=== PATIENT | female | born 1940 | race Caucasian/White ===

== ENCOUNTER 2021-03-14 14:48 | Emergency (ER) | payer MEDICARE, SELFPAY ==
--- NOTE | ~2021-03-14 | XR_ITS ---
EXAMINATION: XR CHEST CLINICAL INFORMATION: Hypertension. COMPARISON: Chest radiographs dated 07/13/2007. TECHNIQUE: Frontal view of the chest was obtained. FINDINGS: The lungs are clear. The heart and mediastinal structures are unremarkable. Mild thoracolumbar levoscoliosis is seen. XR/XR chest 1V IMPRESSION: No acute cardiopulmonary process.
[2021-03-14 16:03] VITALS: BP 164/62; PULSE 75; RESP 18; TEMP 36.7; O2SAT 94; BMI 22.6
--- NOTE | 2021-03-14 16:09 | ECG_ITS ---
Test Reason : HIGH BLOOD PRESSURE Blood Pressure : / mmHG Vent. Rate : 069 BPM Atrial Rate : 069 BPM P-R Int : 178 ms QRS Dur : 116 ms QT Int : 422 ms P-R-T Axes : 037 044 031 degrees QTc Int : 452 ms Normal sinus rhythm Normal ECG When compared with ECG of 23-JUL-2010 11:11, No significant change was found Referred By: Generic ED Physician Electronically Signed By:Jarocho Self
[2021-03-14 17:20] LABS: MANUAL DIFF FLAG NO
[2021-03-14 17:26] LABS: Basophils Absolute Auto 0.1 X10*3/uL (0.0-0.2); Basophils Percent Auto 0.7 % (0-2); Eosinophils Absolute Auto 0.1 X10*3/uL (0.0-0.4); Eosinophils Percent Auto 1.4 % (0-4); Hematocrit 39.1 % (37-47); Hemoglobin 12.9 g/dl (12.0-16.0); Imm Gran Abs Auto 0.02 X10*3/uL (0.00-0.03); Imm Gran Pct Auto 0.3 % (0.0-0.4); Lymphocytes Absolute Auto 2.6 X10*3/uL (1.2-4.9); Lymphocytes Percent Auto 35.8 % (20-40); Mean Corpuscular Volume 84.8 fL (80-98); Mean Platelet Volume 9.7 fL (9.4-12.3); Monocytes Absolute Auto 0.5 X10*3/uL (0.1-1.2); Monocytes Percent Auto 7.4 % (2-11); Neutrophils Percent Auto 54.4 % (45-73); Platelet Count 359 X10*3/uL (160-400); Red Blood Count 4.61 X10*6/uL (4.20-5.50); Red Cell Distribution Width 14.2 % (11.0-16.0); White Blood Count 7.3 X10*3/uL (4.8-10.8)
[2021-03-14 17:34] LABS: Glucose Urine UA NEG (NEG); Leukocyte Esterase Urine 1+ (NEG); Nitrite Urine NEG (NEG); Specific Gravity - Urine 1.015 (1.005-1.025); UACC Culture Trigger YES; Urine Blood NEG (NEG); Urine Ketones NEG (NEG); Urine Protein 1+ MG/DL (NEG-TRACE)
[2021-03-14 17:37] LABS: Appearance Urine CLEAR; Color Urine YELLOW
[2021-03-14 17:54] LABS: Anion Gap 17 (12-20); Blood Urea Nitrogen 24 mg/dL (9-16); Calcium 9.8 mg/dL (8.4-10.2); Carbon Dioxide 28 mmol/L (22-29); Chloride 101 mmol/L (96-108); Creatinine Clr Calc Pharmacy 27.5; Estimated Glomerular Filt Rate 43; Glucose Random 134 mg/dL (60-115); Potassium 3.7 mmol/L (3.3-5.1); Sodium 142 mmol/L (135-145)
[2021-03-14 18:02] LABS: Troponin-I High Sensitivity 6.7 ng/L (<3.5-17.0)
[2021-03-14 18:11] LABS: Bacteria Urine 1+ /LPF; RBC Urine 0-2 /HPF (0); Squamous Epithelial Cell Urine 1+ /LPF
--- NOTE | 2021-03-14 20:25 | ED.GENADULT ---
HPI - General Adult General Chief complaint: Recheck/Abnormal Lab/Rx Stated complaint: HIGH BLOOD PRESSURE Time Seen by Provider: 03/14/21 19:39 Source: patient and family Mode of arrival: ambulatory Limitations: no limitations History of Present Illness HPI narrative: Patient history of hypertension on metoprolol noticed blood pressure been on the higher side for last 2 weeks highest blood pressure was 195/106 seen her PCP already who advised to increase the dose of metoprolol but patient has not increased the dose yet also patient was a little confused last week no headache no nausea no vomiting no fever on arrival patient's blood pressure was 164/62 Related Data Previous Rx's Medication Instructions Recorded cefuroxime axetil 500 mg PO BID 7 Days #14 tab 03/14/21 Allergies Allergy/AdvReac Type Severity Reaction Status Date / Time latex [LATEX] Allergy Severe SEVERE Verified 03/14/21 16:02 LOCAL REACTION; OOZING Review of Systems Review of Systems: Constitutional : No Weight loss, No Fever, No Chills ENT/Mouth : No sore throat, No Rhinorrhea Eyes: No Eye Pain, No Swelling Cardiovascular : No Chest Pain, no palpitations Respiratory : No Cough, No Sputum, no shortness of breath Gastrointestinal : no Nausea, No Vomiting, No Diarrhea, No abdominal Pain, no black stools Genitourinary : No Dysuria, No Urinary Frequency Musculoskeletal : No joint pain, No Myalgias, No Joint Swelling Skin : No Skin Lesions, No rash Neuro : No Weakness, No Numbness, No Dizziness, No Headache Psych : No Anxiety/Panic, No Depression Heme/Lymph: No Bruising, No Lymphadenopathy Endocrine : No Polyuria, No Polydipsia All other systems reviewed and are negative [facility] Past Medical History Medical History Diabetes High cholesterol HTN (hypertension) Social History Social History Advance Directives: No Physical Exam Vital Signs: Vital Signs: Last Vital Signs Temp 97.6 F 03/14/21 20:55 Pulse 80 03/14/21 20:55 Resp 17 03/14/21 20:55 BP 174/78 H 03/14/21 20:55 Pulse Ox 95 03/14/21 20:55 Body Mass Index 22.6 Appearance: Alert. Oriented X3. No acute distress. Eyes: PERRLA, No Nystagmus ENT: Pharynx normal. Oral Mucosa moist Neck: Normal inspection. Neck supple. CVS: Normal heart rate and rhythm. Pulses normal. Respiratory: No respiratory distress. Equal air entry bilateral, no wheezing/rales/rhonchi Abdomen: Soft and nontender. Bowel sounds are present, no mass palpable, no CVA tenderness Skin: Skin warm and dry. Normal skin color. Normal skin turgor. Extremities: No lower extremity edema. No calf tenderness Neuro: Oriented X 3. No motor deficit. No sensory deficit.No cerebellar signs , cranial nerves II-XII intact Medical Decision Making MDM Narrative Medical decision making narrative: Patient blood pressure 148/73 urine shows few wbc's . Will discharge patient home on Ceftin Lab Data Lab results reviewed: Yes I reviewed the patient's lab results. Result diagrams: 03/14/21 17:04 03/14/21 17:04 Labs: Lab Results 03/14/21 03/14/21 03/14/21 Range/Units 17:04 17:04 17:04 WBC 7.3 (4.8-10.8) X10*3/uL RBC 4.61 (4.20-5.50) X10*6/uL Hgb 12.9 (12.0-16.0) g/dl Hct 39.1 (37-47) % MCV 84.8 (80-98) fL MCH 28.0 (27.0-33.0) pg MCHC 33.0 (31.0-35.0) g/dl RDW 14.2 (11.0-16.0) % Plt Count 359 (160-400) X10*3/uL MPV 9.7 (9.4-12.3) fL Immature Gran % (Auto) 0.3 (0.0-0.4) % Neut % (Auto) 54.4 (45-73) % Lymph % (Auto) 35.8 (20-40) % Jenkins % (Auto) 7.4 (2-11) % Eos % (Auto) 1.4 (0-4) % Baso % (Auto) 0.7 (0-2) % Lymph # (Auto) 2.6 (1.2-4.9) X10*3/uL Jenkins # (Auto) 0.5 (0.1-1.2) X10*3/uL Eos # (Auto) 0.1 (0.0-0.4) X10*3/uL Baso # (Auto) 0.1 (0.0-0.2) X10*3/uL Abs Immat Gran (auto) 0.02 (0.00-0.03) X10*3/uL Absolute Neuts (auto) 4.0 (2.0-8.3) X10*3/uL Absolute Nucleated RBC 0.000 (0.0-0.012) X10*3/uL Nucleated RBC % (auto) 0.0 (0.0-0.2) /100WBC Hold Blue Top SEE NOTE Sodium 142 (135-145) mmol/L Potassium 3.7 (3.3-5.1) mmol/L Chloride 101 (96-108) mmol/L Carbon Dioxide 28 (22-29) mmol/L Anion Gap 17 (12-20) BUN 24 H (9-16) mg/dL Creatinine 1.19 (0.5-1.4) mg/dL Estim Creat Clear Calc 27.5 Estimated GFR 43 Random Glucose 134 H (60-115) mg/dL Calcium 9.8 (8.4-10.2) mg/dL Troponin I High Sens (<3.5-17.0) ng/L Urine Color Urine Appearance Urine pH (5.0-8.0) Ur Specific Natoma (1.005-1.025) Urine Protein (NEG-TRACE) MG/DL Urine Glucose (UA) (NEG) MG/DL Urine Ketones (NEG) MG/DL Urine Blood (NEG) Urine Nitrite (NEG) Ur Leukocyte Esterase (NEG) Urine RBC (0) /HPF Urine WBC (0-4) /HPF Ur Squamous Epith Cells /LPF Urine Bacteria /LPF 03/14/21 03/14/21 Range/Units 17:04 17:04 WBC (4.8-10.8) X10*3/uL RBC (4.20-5.50) X10*6/uL Hgb (12.0-16.0) g/dl Hct (37-47) % MCV (80-98) fL MCH (27.0-33.0) pg MCHC (31.0-35.0) g/dl RDW (11.0-16.0) % Plt Count (160-400) X10*3/uL MPV (9.4-12.3) fL Immature Gran % (Auto) (0.0-0.4) % Neut % (Auto) (45-73) % Lymph % (Auto) (20-40) % Jenkins % (Auto) (2-11) % Eos % (Auto) (0-4) % Baso % (Auto) (0-2) % Lymph # (Auto) (1.2-4.9) X10*3/uL Jenkins # (Auto) (0.1-1.2) X10*3/uL Eos # (Auto) (0.0-0.4) X10*3/uL Baso # (Auto) (0.0-0.2) X10*3/uL Abs Immat Gran (auto) (0.00-0.03) X10*3/uL Absolute Neuts (auto) (2.0-8.3) X10*3/uL Absolute Nucleated RBC (0.0-0.012) X10*3/uL Nucleated RBC % (auto) (0.0-0.2) /100WBC Hold Blue Top Sodium (135-145) mmol/L Potassium (3.3-5.1) mmol/L Chloride (96-108) mmol/L Carbon Dioxide (22-29) mmol/L Anion Gap (12-20) BUN (9-16) mg/dL Creatinine (0.5-1.4) mg/dL Estim Creat Clear Calc Estimated GFR Random Glucose (60-115) mg/dL Calcium (8.4-10.2) mg/dL Troponin I High Sens 6.7 (<3.5-17.0) ng/L Urine Color YELLOW Urine Appearance CLEAR Urine pH 6.0 (5.0-8.0) Ur Specific Natoma 1.015 (1.005-1.025) Urine Protein 1+ H (NEG-TRACE) MG/DL Urine Glucose (UA) NEG (NEG) MG/DL Urine Ketones NEG (NEG) MG/DL Urine Blood NEG (NEG) Urine Nitrite NEG (NEG) Ur Leukocyte Esterase 1+ H (NEG) Urine RBC 0-2 (0) /HPF Urine WBC 10-14 H (0-4) /HPF Ur Squamous Epith Cells 1+ /LPF Urine Bacteria 1+ /LPF Discharge Plan Discharge Clinical Impression: Acute UTI Hypertension Qualifiers: Hypertension type: unspecified Qualified Code(s): I10 - Essential (primary) hypertension Patient Disposition: Home, Self-Care Instructions: Hypertension (ED), Urinary Tract Infection in Older Adults (ED) Additional Instructions: Your have labile hypertension , continue medications as prescribed by her PCP your last blood pressure was 148/73 Check blood pressure daily Take antibiotic as prescribed. Drink plenty of fluids Prescriptions: New cefuroxime axetil 500 mg tablet 500 mg PO BID 7 Days Qty: 14 RF: 0 Interventions: ED Discharge Assessment Last Done: 03/14/21 21:50 Discharge Date/Time: 03/14/21 21:50
[2021-03-14 20:55] VITALS: BP 174/78; PULSE 80; RESP 17; TEMP 36.4; O2SAT 95
== END 2021-03-14 21:50 | disposition home or self-care (01) ==
PROVIDERS: Emergency Provider Internal Medicine; PCP Family Medicine
DX: N39.0 Urinary tract infection, site not specified (principal); I10 Essential (primary) hypertension; Z79.899 Other long term (current) drug therapy
CPT/HCPCS: 36415; 71045; 80048; 81001; 81003; 84484; 85025; 87086; 93005; 99284

== ENCOUNTER 2021-03-22 17:13 | Emergency (ER) | payer MEDICARE, SELFPAY ==
[2021-03-22 18:03] VITALS: BMI 22.3
[2021-03-22 18:10] VITALS: BP 208/86; PULSE 79; RESP 16; TEMP 36.4; O2SAT 97
--- NOTE | 2021-03-22 18:26 | ED_ITS ---
HPI - General Adult General Chief complaint: General Medical Stated complaint: HIGH BP Time Seen by Provider: 03/22/21 18:26 Source: patient Mode of arrival: ambulatory Limitations: no limitations History of Present Illness HPI narrative: Patient has history of hypertension on lisinopril and metoprolol seen her primary care doctor for episodic increase blood pressure who increased the dose of metoprolol to 100 mg daily instead of 50 but patient has not taken it yet today her blood pressure was elevated at home 208/86 on arrival no headache no chest pain no shortness of breath patient is slightly anxious on arr ival Related Data Previous Rx's Medication Instructions Recorded cefuroxime axetil 500 mg PO BID 7 Days #14 tab 03/14/21 Allergies Allergy/AdvReac Type Severity Reaction Status Date / Time latex [LATEX] Allergy Severe SEVERE Verified 03/14/21 16:02 LOCAL REACTION; OOZING Review of Systems Review of Systems: Yes all other systems are reviewed and are negative [facility] Past Medical History Medical History Diabetes High cholesterol HTN (hypertension) Social History Social History Alcohol intake: never Patient Tobacco Use Status: Never used Tobacco Use of substances other than those prescribed or required for medical reasons: No Advance Directives: No Advance Directives Information Provided: No Physical Exam Vital Signs: Vital Signs: Last Vital Signs Temp 97.5 F 03/22/21 18:10 Pulse 79 03/22/21 18:10 Resp 16 03/22/21 18:10 BP 208/86 H 03/22/21 18:10 Pulse Ox 97 03/22/21 18:10 Body Mass Index 22.3 Appearance: Alert. Oriented X3. No acute distress. Eyes: PERRLA, No Nystagmus ENT: Pharynx normal. Oral Mucosa moist Neck: Normal inspection. Neck supple. CVS: Normal heart rate and rhythm. Pulses normal. Respiratory: No respiratory distress. Equal air entry bilateral, no wheezing/rales/rhonchi Abdomen: Soft and nontender. Bowel sounds are present, no mass palpable, no CVA tenderness Skin: Skin warm and dry. Normal skin color. Normal skin turgor. Extremities: No lower extremity edema. No calf tenderness Neuro: Oriented X 3. No motor deficit. No sensory deficit.No cerebellar signs , cranial nerves II-XII intact Medical Decision Making MDM Narrative Medical decision making narrative: Patient with slightly elevated blood pressure re-educated about the hypertension and importance of taking the medication follow-up with PCP at this time patient does not have any end-organ damage findings family is at the bedside as sure to follow-up with her PCP and increase the dose of metoprolol to 50 mg twice daily or 100 mg extended release daily Discharge Plan Discharge Clinical Impression: Hypertension Patient Disposition: Home, Self-Care Instructions: Hypertension (ED) Additional Instructions: Drink plenty of fluids Increase dose of metoprolol 50 mg 2 times daily as advised or take ER 100 mg daily Check blood pressure at home which should be less than 160/90 Take extra tablet of metoprolol 25 mg tonight if blood pressure stays higher than 160/90 Follow-up with your PCP Prescriptions: No Action cefuroxime axetil 500 mg tablet 500 mg PO BID 7 Days Qty: 14 RF: 0 Interventions: ED Discharge Assessment Last Done: 03/22/21 19:33 Discharge Date/Time: 03/22/21 19:33
== END 2021-03-22 19:33 | disposition home or self-care (01) ==
PROVIDERS: Emergency Provider Internal Medicine; PCP Family Medicine
DX: I10 Essential (primary) hypertension (principal); Z79.899 Other long term (current) drug therapy
CPT/HCPCS: 99282; 99283; 99284

== ENCOUNTER 2021-09-02 08:07 | Outpatient (REF) | payer MEDICARE, SELFPAY ==
[2021-09-02 10:24] LABS: Anion Gap 12 (12-20); Blood Urea Nitrogen 16 mg/dL (9-16); Carbon Dioxide 30 mmol/L (22-29); Chloride 100 mmol/L (96-108); Cholesterol 248 mg/dL; Estimated Glomerular Filt Rate 52; Glucose Fasting 130 mg/dL (60-99); HDL Cholesterol 49 mg/dL; LDL Cholesterol Calculated 163 mg/dl; Potassium 3.4 mmol/L (3.3-5.1); Sodium 139 mmol/L (135-145); Triglycerides 183 mg/dL
[2021-09-02 10:53] LABS: Creatinine Urine 159.92 mg/dL; Microalbum/Creatinine Ratio Ur 9.3 ug/mg cr
[2021-09-02 11:04] LABS: Estimated Average Glucose 148 mg/dL; Hemoglobin A1c % 6.8 %
== END 2021-09-02 08:08 | disposition home or self-care (01) ==
LOC: HO.10HDL 08:07
PROVIDERS: Visit Provider Family Medicine
DX: I10 Essential (primary) hypertension (principal); E78.00 Pure hypercholesterolemia, unspecified; E11.9 Type 2 diabetes mellitus without complications
CPT/HCPCS: 36415; 80051; 80061; 82043; 82565; 82947; 83036; 84520

== ENCOUNTER 2022-02-06 07:36 | Outpatient (REF) | payer MEDICARE, SELFPAY ==
[2022-02-06 08:43] LABS: Anion Gap 14 (12-20); Blood Urea Nitrogen 19 mg/dL (9-16); Carbon Dioxide 29 mmol/L (22-29); Chloride 99 mmol/L (96-108); Cholesterol 261 mg/dL; Estimated Glomerular Filt Rate 50; Glucose Fasting 136 mg/dL (60-99); HDL Cholesterol 50 mg/dL; LDL Cholesterol Calculated 170 mg/dl; Potassium 3.7 mmol/L (3.3-5.1); Sodium 138 mmol/L (135-145); Triglycerides 207 mg/dL
[2022-02-06 09:13] LABS: Estimated Average Glucose 154 mg/dL
== END 2022-02-06 07:37 | disposition home or self-care (01) ==
LOC: HO.LAB 07:36
PROVIDERS: PCP Family Medicine; Visit Provider Family Medicine
DX: I10 Essential (primary) hypertension (principal); E78.00 Pure hypercholesterolemia, unspecified; E11.9 Type 2 diabetes mellitus without complications
CPT/HCPCS: 36415; 80051; 80061; 82565; 82947; 83036; 84520

== ENCOUNTER → 2022-06-26 12:23 | Outpatient (REF) | payer MEDICARE, SELFPAY ==
--- NOTE | 2022-06-26 12:30 | ECG_ITS ---
Test Reason : TACHYCARDIA Blood Pressure : / mmHG Vent. Rate : 079 BPM Atrial Rate : 079 BPM P-R Int : 178 ms QRS Dur : 128 ms QT Int : 416 ms P-R-T Axes : 061 053 051 degrees QTc Int : 477 ms Normal sinus rhythm Right bundle branch block Abnormal ECG When compared with ECG of 14-MAR-2021 17:51, Right bundle branch block is now Present Referred By: Tommy Olivares Electronically Signed By:JHON ARRIAGA
== END ==
LOC: HO.CARD 12:23
PROVIDERS: Visit Provider Family Medicine
DX: R00.0 Tachycardia, unspecified (principal)
CPT/HCPCS: 93005

== ENCOUNTER 2022-08-06 08:24 | Outpatient (REF) | payer MEDICARE, SELFPAY ==
[2022-08-06 10:32] LABS: Estimated Average Glucose 154 mg/dL
[2022-08-06 10:37] LABS: Alanine Aminotransferase 16 U/L (0-31); Anion Gap 18 (12-20); Aspartate Amino Transferase 23 U/L (5-31); Blood Urea Nitrogen 18 mg/dL (9-16); Carbon Dioxide 28 mmol/L (22-29); Chloride 102 mmol/L (96-108); Estimated Glomerular Filt Rate 48; Glucose Fasting 118 mg/dL (60-99); Potassium 3.8 mmol/L (3.3-5.1); Sodium 144 mmol/L (135-145)
[2022-08-06 11:01] LABS: Free T4 (Free Thyroxine) 1.13 ng/dL (0.71-1.85)
== END 2022-08-06 08:25 | disposition home or self-care (01) ==
LOC: HO.10HDL 08:24
PROVIDERS: Visit Provider Family Medicine
DX: I10 Essential (primary) hypertension (principal); E11.9 Type 2 diabetes mellitus without complications; E78.00 Pure hypercholesterolemia, unspecified; Z79.899 Other long term (current) drug therapy
CPT/HCPCS: 36415; 80051; 82550; 82565; 82947; 83036; 84439; 84450; 84460; 84520

== ENCOUNTER → 2022-09-02 09:28 | Outpatient (REF) | payer MEDICARE, SELFPAY ==
--- NOTE | 2022-09-02 09:33 | CA_ITS ---
Transthoracic Echocardiogram Patient (Last, First, Middle): Natalie Huffman, Gender: Female Date of : 1940 Age: 82 Procedure Date: 09/02/2022 Procedure Type: Transthoracic Echocardiogram Location: OP Height: 154.94 cm Weight: 54.43 kg BSA: 1.52 m2 Heart Rate: bpm BP: 168 / 76 mmHg [employer] Instructor: LAURIE Referring MD: Tommy Olivares MD Symptoms: R01.1 CARDIAC MURMUR Study Quality: Fair, contrast used ECG Rhythm: Sinus Conclusions: - The left ventricular systolic function is hyperdynamic. The visually estimated ejection fraction is >70%. - There is mild calcification of the aortic valve. - There is no aortic valve stenosis. - There is mild mitral annular calcification. Findings Procedure Information Contrast agent, definity, is being given per protocol without apparent complications. Left Ventricle Normal left ventricular cavity size. There is mildly increased left ventricular wall thickness. The left ventricular systolic function is hyperdynamic. The visually estimated ejection fraction is >70%. E/E prime ratio is between 8 and 15 consistent with indeterminate filling pressures. Evidence suggests grade I (mild) diastolic dysfunction. Right Ventricle Normal right ventricular cavity size and systolic function. Atria Both atria are normal in size. Aortic Valve There is a normal trileaflet aortic valve. There is mild calcification of the aortic valve. There is no aortic valve stenosis. There is no aortic valve regurgitation. Mitral Valve There is mild mitral annular calcification. There is no mitral valve regurgitation. There is no mitral valve stenosis. Pulmonic Valve The pulmonic valve is likely normal. Tricuspid Valve There is trace tricuspid valve regurgitation. There is no evidence of pulmonary hypertension. Great Vessels The asc aorta is normal in size. Venous The inferior vena cava is normal in size and collapses greater than 50% with inspiration. Pericardium/Pleural There is no evidence of pericardial effusion. Prior Study Comparison No significant change compared to prior study dated: 05/18/2002. Recommendations, Care & Conclusions No obvious valvular pathology seen on this study. Measurements 2D Linear Measurements IVSd: 1.16 0.6-0.9/0.6-1.0 cm LVIDd: 3.83 3.9-5.3/4.2-5.9 cm LVIDd Index: 2.52 2.4-3.2/2.2-3.1 cm/m2 LVIDs: 2.14 2.0-3.6 cm LVPWd: 1.14 0.7-1.1 cm LA Diam: 2.40 2.7-3.8/3.0-4.0 cm LAIDs Index: 1.58 1.5-2.3 cm/m2 LV Mass: 181.13 67-162/88-224 g LV Mass Index: 119.17 43-95/49-115 g/m2 LVOT Diam: 2.00 3.0+(-)1.3 cm 2D Systolic Function EF 4C: 70.10 >55% EF 2C: 75.90 >55% EF BiP: 73.70 >55% Mitral Valve MV Pk E: 0.70 MV PK A: 0.98 MV Decel Time: 369.00 E/A: 0.70 E'Lateral: 6.64 E'Medial: 4.35 E/E' Med: 16.10 E/E' Lat: 10.50 PHT: 108.00 MVA PHT: 2.04 Decel [place]: 1.89 Aortic Valve AoV Pk Jose Alejandro: 1.55 AoV Mn Jose Alejandro: 1.03 AoV VTI: 0.36 AoV Pk Grad: 10.00 Aov Mn Grad: 5.00 SALMA Cont.VTI: 2.06 LVOT LVOT Pk Jose Alejandro: 0.95 LVOT Mn Jose Alejandro: 0.63 LVOT VTI: 0.24 LVOT Pk Grad: 4.00 LVOT Mn Grad: 2.00 LVOT Diam: 2.00 LVOT Area: 3.14 Diastolic Function MV Pk E: 0.70 MV Pk A: 0.98 E/A: 0.70 E'Medial: 4.35 E/E' Med: 16.10 E' Laterial: 6.64 E/E' Lat: 10.50 Right Ventricle TAPSE (mm): 25.20 TVS' Jose Alejandro: 12.40 Tricuspid Valve TR Pk Jose Alejandro: 2.27 TR Pk Grad: 21.00 RA Press: 3.00 RVSP: 24.00 Great Vessels Aorta Sinus of Valsalva: 3.01 2.0-3.[address] [place]: 2.44 1.7-3.4 cm Ao Asc: 3.20 2.1-3.4 cm Updated in Other Vendor System with Status of Final Rao Torres MD electronically signed on 09/04/2022 11:22:30 AM with status of Final
== END ==
LOC: HO.CARD 09:28
PROVIDERS: PCP Family Medicine; Visit Provider Family Medicine
DX: R01.1 Cardiac murmur, unspecified (principal)
CPT/HCPCS: 93306; Q9957

== ENCOUNTER 2023-02-03 08:09 | Outpatient (REF) | payer MEDICARE, SELFPAY ==
[2023-02-03 11:01] LABS: Estimated Average Glucose 163 mg/dL; Hemoglobin A1c % 7.3 %
[2023-02-03 11:05] LABS: Anion Gap 13 (12-20); Blood Urea Nitrogen 22 mg/dL (9-16); Carbon Dioxide 32 mmol/L (22-29); Chloride 102 mmol/L (96-108); Estimated Glomerular Filt Rate 44; Glucose Fasting 139 mg/dL (60-99); Potassium 3.8 mmol/L (3.3-5.1); Sodium 143 mmol/L (135-145)
== END 2023-02-03 08:10 | disposition home or self-care (01) ==
LOC: HO.10HDL 08:09
PROVIDERS: Visit Provider Family Medicine
DX: I10 Essential (primary) hypertension (principal); E11.9 Type 2 diabetes mellitus without complications
CPT/HCPCS: 36415; 80051; 82565; 82947; 83036; 84520

== ENCOUNTER 2023-08-06 07:39 | Outpatient (REF) | payer MEDICARE, SELFPAY ==
[2023-08-06 08:06] LABS: Estimated Average Glucose 157 mg/dL; Hemoglobin A1C 148.7047 umol/L; Hemoglobin A1c % 7.1 % (<6.0)
[2023-08-06 09:18] LABS: Alanine Aminotransferase 18 U/L (0-31); Anion Gap 16 (12-20); Aspartate Amino Transferase 25 U/L (5-31); Blood Urea Nitrogen 13 mg/dL (9-16); Carbon Dioxide 28 mmol/L (22-29); Chloride 101 mmol/L (96-108); Estimated Glomerular Filt Rate 52; Glucose Fasting 144 mg/dL (60-99); Potassium 3.5 mmol/L (3.3-5.1); Sodium 141 mmol/L (135-145)
== END 2023-08-06 07:40 | disposition home or self-care (01) ==
LOC: HO.10HDL 07:39
PROVIDERS: Internal Medicine; Visit Provider Family Medicine
DX: I10 Essential (primary) hypertension (principal); E78.00 Pure hypercholesterolemia, unspecified; E11.9 Type 2 diabetes mellitus without complications; Z79.899 Other long term (current) drug therapy
CPT/HCPCS: 36415; 80051; 82550; 82565; 82947; 83036; 84450; 84460; 84520

== ENCOUNTER 2023-10-19 15:33 | Outpatient (REF) | payer MEDICARE, SELFPAY | END 2023-10-19 15:34 | disposition home or self-care (01) | LOC: HO.SH 15:33 | PROVIDERS: Visit Provider Family Medicine | DX: Z01.118 Encounter for examination of ears and hearing with other abnormal findings (principal); H90.3 Sensorineural hearing loss, bilateral | CPT/HCPCS: 92557; 92567 ==

== ENCOUNTER 2024-01-07 09:55 | Outpatient (REF) | payer MEDICARE, SELFPAY ==
--- NOTE | 2024-01-08 07:47 | MHC.AU.HA1 ---
Hearing Aid Evaluation Date of Visit: 01/07/24 Historical Information: Description of Hearing: Right Ear: Profound rising to severe sloping to profound sensorineural hearing loss; Left Ear: Mild sloping to severe sensorineural hearing loss Summary: Natalie was accompanied by her daughter, Crystal. At her audiological evaluation, an ENT consultation was recommended due to significant asymmetry. However, Natalie reported she does not want to see another doctor and just wants to get a hearing aid. Still strongly encouraged ENT but Natalie signed medical waiver. Discussed options including BiCros vs only left hearing aid. Natalie initially assumed she would only need one hearing aid for her left ear. She ultimately opted to trial BiCros, knowing she can return the CROS transmitter if she prefers to use only the left hearing aid. Will start with dome in left ear; however, discussed possibility of adding custom ear mold, if needed. Natalie is still active, frequenting the [facility], where she listens to talks, plays cards, interacts with friends, etc., as well as other social/family gatherings, restaurants, and appointments. Hearing Aid Prescription: Based on the individual?s shared listening needs, communication environments, dexterity, desire for connectivity, and personal preferences, the following prescription for amplification has been made: Right ear: Make, Model, Color: Oticon CROS PX miniRITE-R Color: Chroma Biege Battery Size: Rechargeable Weight Inspector/Slim Tube: 2/85 Type of Earmold/Dome/CShell/SlimTip: 6mm open villagran dome Left ear: Make, Model, Color: Oticon REAL 2 miniRITE-R Color: Chroma Biege Battery Size: Rechargeable Weight Inspector/Slim Tube: 2/85 Type of Earmold/Dome/CShell/SlimTip: 6mm power dome Accessories/Assistive Technology: Medical Care Manager Plan of Care: Patient wishes to purchase hearing aids as prescribed Action Taken/Action Needed: Hearing Instrument Fitting to be scheduled when materials arrive Primary Diagnosis: H90.3 Bilateral Sensorineural Hearing Loss Signature: Provider: Rosanne Vásquez, [facility]
== END 2024-01-07 09:56 | disposition home or self-care (01) ==
LOC: HO.HAP 09:55
PROVIDERS: PCP Family Medicine; Visit Provider Family Medicine
DX: Z46.1 Encounter for fitting and adjustment of hearing aid (principal); H90.3 Sensorineural hearing loss, bilateral
CPT/HCPCS: 92590

== ENCOUNTER 2024-02-01 11:02 | Outpatient (REF) | payer MEDICARE, SELFPAY | END 2024-02-01 11:03 | disposition home or self-care (01) | LOC: HO.HAP 11:02 | PROVIDERS: PCP Family Medicine; Visit Provider Family Medicine | DX: Z46.1 Encounter for fitting and adjustment of hearing aid (principal); H90.3 Sensorineural hearing loss, bilateral | CPT/HCPCS: V5221; V5299 ==

== ENCOUNTER 2024-02-04 08:14 | Outpatient (REF) | payer MEDICARE, SELFPAY ==
[2024-02-04 11:00] LABS: Estimated Average Glucose 180 mg/dL; Hemoglobin A1C 183.9791 umol/L; Hemoglobin A1c % 7.9 % (<6.0)
[2024-02-04 11:18] LABS: Anion Gap 14 (12-20); Blood Urea Nitrogen 19 mg/dL (9-16); Carbon Dioxide 30 mmol/L (22-29); Chloride 101 mmol/L (96-108); Estimated Glomerular Filt Rate 50; Glucose Fasting 147 mg/dL (60-99); Potassium 3.3 mmol/L (3.3-5.1); Sodium 142 mmol/L (135-145)
[2024-02-04 11:42] LABS: Creatinine Urine 103.15 mg/dL; Microalbum/Creatinine Ratio Ur 7.7 ug/mg cr (<30)
== END 2024-02-04 08:15 | disposition home or self-care (01) ==
LOC: HO.10HDL 08:14
PROVIDERS: Visit Provider Family Medicine
DX: I10 Essential (primary) hypertension (principal); E11.9 Type 2 diabetes mellitus without complications
CPT/HCPCS: 36415; 80051; 82043; 82565; 82570; 82947; 83036; 84520

== ENCOUNTER 2024-02-29 10:58 | Outpatient (REF) | payer SELFPAY ==
--- NOTE | 2024-02-29 13:01 | MHC.AU.HA3 ---
Hearing Instrument Follow-Up- Binaural Date of Visit: 02/29/24 Left Ear: Make, Model, Color, Serial Number: Oticon REAL 2 miniRITE-R SN: [id number] Color: Chroma Biege Furniture Duster Repair Warranty: 02/05/2027 Furniture Duster Loss and Damage Warranty: 02/05/2027 [facility] Service Plan: OPTED OUT Battery Size: Rechargeable Room Service Server/Slim Tube: 2/85 Earmold/Dome/CShell/SlimTip: 6mm power dome (no retention tail) Type of Wax Guard: miniFit Dispensed By: [facility] Date of Fittin02/01/2024 Follow-Up Summary: Accompanied by daughter, Crystal. Overall, Natalie has noticed significant benefit from the hearing aid. However, she did not notice any additional benefit from the CROS and has opted to return the CROS for credit. With the left hearing aid, Natalie has noticed the clock in her kitchen ticking, floors creaking, paper crinkling. Her daughter reported increased responsiveness and engagement in conversations. Only concern was questionable benefit in more adverse listening environments like the [facility] - increased noise management settings, reinstructed on VC use, and reexplained realistic expectations. Instructed how to clean, including changing domes and wax guards. Also practice insertion again as Natalie was not fully inserting. Data logging showed about 10 hours of use per day. Natalie opted to schedule one additional follow up to monitor progress. She may cancel if all is well and knows any appointments after that will incur a [id number]. Recommendations: An additional follow-up was scheduled to monitor progress. Diagnosis Code(s): Primary Diagnosis: H90.3 Bilateral Sensorineural Hearing Loss Signature: Provider: Rosanne Vásquez, [facility]
== END 2024-02-29 10:59 | disposition home or self-care (01) ==
LOC: HO.HAP 10:58
PROVIDERS: Visit Provider Family Medicine
DX: Z13.89 Encounter for screening for other disorder (principal)

== ENCOUNTER 2024-03-16 15:58 | Outpatient (REF) | payer SELFPAY | END 2024-03-16 15:59 | disposition home or self-care (01) | LOC: HO.HAP 15:58 | PROVIDERS: Visit Provider Family Medicine | DX: Z13.89 Encounter for screening for other disorder (principal) ==

== ENCOUNTER 2024-04-05 07:44 | Outpatient (REF) | payer MEDICARE, SELFPAY ==
[2024-04-05 10:56] LABS: MANUAL DIFF FLAG NO
[2024-04-05 11:00] LABS: Basophils Absolute Auto 0.1 X10*3/uL (0.0-0.2); Basophils Percent Auto 0.8 % (0-2); Eosinophils Absolute Auto 0.2 X10*3/uL (0.0-0.4); Eosinophils Percent Auto 2.8 % (0-4); Hematocrit 34.2 % (37.0-47.0); Hemoglobin 11.2 g/dl (12.0-16.0); Imm Gran Abs Auto 0.02 X10*3/uL (0.00-0.03); Imm Gran Pct Auto 0.2 % (0.0-0.4); Lymphocytes Percent Auto 34.9 % (20-40); Mean Corpuscular HGB Conc 32.7 g/dl (31.0-35.0); Mean Corpuscular Volume 85.5 fL (80.0-98.0); Mean Platelet Volume 9.5 fL (9.4-12.3); Monocytes Absolute Auto 0.7 X10*3/uL (0.1-1.2); Monocytes Percent Auto 8.2 % (2-11); Neutrophils Absolute Auto 4.5 x10*3/uL (2.0-8.3); Neutrophils Percent Auto 53.1 % (45-73); Platelet Count 386 X10*3/uL (160-400); Red Cell Distribution Width 14.6 % (11.0-16.0); White Blood Count 8.5 X10*3/uL (4.8-10.8)
[2024-04-05 11:08] LABS: Estimated Average Glucose 180 mg/dL; Hemoglobin A1c % 7.9 % (<6.0)
[2024-04-05 11:23] LABS: Alanine Aminotransferase 13 U/L (0-31); Albumin Level 4.2 g/dL (3.5-5.0); Alkaline Phosphatase 72 U/L (39-117); Anion Gap 13 (12-20); Aspartate Amino Transferase 22 U/L (5-31); Bilirubin Total 0.7 mg/dL (0.0-1.0); Blood Urea Nitrogen 20 mg/dL (9-16); Calcium 9.2 mg/dL (8.4-10.2); Carbon Dioxide 30 mmol/L (22-29); Chloride 101 mmol/L (96-108); Estimated Glomerular Filt Rate 55; Glucose Fasting 145 mg/dL (60-99); Potassium 3.4 mmol/L (3.3-5.1); Sodium 141 mmol/L (135-145); Total Protein 7.5 g/dL (6.5-8.0)
[2024-04-05 11:37] LABS: Free T4 (Free Thyroxine) 1.28 ng/dL (0.71-1.85)
== END 2024-04-05 07:45 | disposition home or self-care (01) ==
LOC: HO.10HDL 07:44
PROVIDERS: Visit Provider Family Medicine
DX: E11.9 Type 2 diabetes mellitus without complications (principal); R53.83 Other fatigue; E78.00 Pure hypercholesterolemia, unspecified
CPT/HCPCS: 36415; 80053; 83036; 84439; 85025

== ENCOUNTER 2024-04-12 06:57 | Outpatient (REF) | payer MEDICARE, SELFPAY ==
[2024-04-12 07:16] LABS: MANUAL DIFF FLAG NO
[2024-04-12 07:42] LABS: Basophils Absolute Auto 0.1 X10*3/uL (0.0-0.2); Basophils Percent Auto 0.8 % (0-2); Eosinophils Absolute Auto 0.3 X10*3/uL (0.0-0.4); Hematocrit 35.4 % (37.0-47.0); Hemoglobin 11.4 g/dl (12.0-16.0); Imm Gran Abs Auto 0.03 X10*3/uL (0.00-0.03); Imm Gran Pct Auto 0.3 % (0.0-0.4); Immature Retic Fraction 11.2 % (3.0-15.9); Lymphocytes Absolute Auto 3.5 X10*3/uL (1.2-4.9); Lymphocytes Percent Auto 31.5 % (20-40); Mean Corpuscular HGB Conc 32.2 g/dl (31.0-35.0); Mean Corpuscular Volume 83.9 fL (80.0-98.0); Mean Platelet Volume 9.4 fL (9.4-12.3); Monocytes Absolute Auto 0.8 X10*3/uL (0.1-1.2); Monocytes Percent Auto 7.5 % (2-11); Neutrophils Absolute Auto 6.3 x10*3/uL (2.0-8.3); Neutrophils Percent Auto 56.9 % (45-73); Platelet Count 411 X10*3/uL (160-400); Red Blood Count 4.22 X10*6/uL (4.20-5.50); Red Cell Distribution Width 14.5 % (11.0-16.0); Retic HGB Equivalent 28.2 pg (30.0-35.0); Reticulocyte Percent 1.1 % (0.5-1.8); Reticulocytes Absolute 0.046 X10*6/uL (0.026-0.095); White Blood Count 11.1 X10*3/uL (4.8-10.8)
[2024-04-12 08:11] LABS: Iron 55 mcg/dL (30-160); Percent Iron Saturation 17 % (15-50); Total Iron Binding Capacity 322 mcg/dL (228-428); Unsaturated Iron Binding 267 ug/dL
[2024-04-12 08:27] LABS: Ferritin 44 ng/mL (10-250)
[2024-04-12 08:38] LABS: Folate 5.2 ng/mL (> or = 4.0); Vitamin B12 219 pg/mL (200-900)
[2024-04-12 08:39] LABS: Erythrocyte Sedimentation Rate 61 MM/HR (0-20)
== END 2024-04-12 06:58 | disposition home or self-care (01) ==
LOC: HO.LAB 06:57
PROVIDERS: PCP Family Medicine; Visit Provider Family Medicine
DX: D64.9 Anemia, unspecified (principal)
CPT/HCPCS: 36415; 82607; 82728; 82746; 83540; 85025; 85045; 85652

== ENCOUNTER 2024-06-06 07:51 | Emergency (ER) | payer MEDICARE, SELFPAY ==
--- NOTE | ~2024-06-06 | CT_ITS ---
EXAMINATION: CT CERVICAL SPINE WITHOUT CONTRAST CLINICAL INFORMATION: Neck pain radiating down the upper extremities. COMPARISON: None available. TECHNIQUE: Multidetector helical imaging of the cervical spine was obtained without intravenous contrast. Multiple axial reformats and coronal/sagittal reconstructions were created the technologist workstation for review. This CT examination was performed using dose optimization techniques as appropriate, variously including the following: *Automated exposure control. *Adjustment of mA and/or kV according to patient size (this includes techniques or standardized protocols for targeted exams where dose is matched to indication/reason for exam; i.e. extremities or head). *Use of iterative reconstruction technique. DLP: 274 mGy-cm FINDINGS: The atlantooccipital and atlantoaxial articulations remain well aligned. Moderate degenerative arthropathy of the atlantodental articulation. Minimal degenerative stepwise anterolistheses of C7-T2. Otherwise, there is anatomic alignment of the vertebral bodies and posterior elements. No evidence of acute fracture or subluxation. The vertebral body heights are maintained. Moderate degenerative disc disease from C2-C6. There is no prevertebral soft tissue swelling. Multiple nonobstructive subcentimeter stones in the bilateral submandibular and parotid glands. The thyroid gland and remaining cervical soft tissues are within normal limits. The lung apices demonstrate no abnormalities. SPINAL LEVELS: C2-C3: Minimal disc-osteophyte complex. There is mild bilateral uncovertebral joint arthropathy. There is mild bilateral facet joint arthropathy. There is no neural foraminal stenosis. There is no demonstrated spinal canal stenosis. C3-C4: Mild disc-osteophyte complex. There is moderate right and mild left uncovertebral joint arthropathy. There is mild bilateral facet joint arthropathy. There is mild bilateral neural foraminal stenosis. There is no demonstrated spinal canal stenosis. C4-C5: Mild disc-osteophyte complex. There is moderate left and mild right uncovertebral joint arthropathy. There is severe left and mild right facet joint arthropathy. There is moderate left and mild right neural foraminal stenosis. There is no demonstrated spinal canal stenosis. C5-C6: Moderate disc-osteophyte complex. There is moderate left and mild right uncovertebral joint arthropathy. There is severe left and mild right facet joint arthropathy. There is moderate bilateral neural foraminal stenosis. There appears to be mild spinal canal stenosis. C6-C7: Mild disc-osteophyte complex. There is moderate left and mild right uncovertebral joint arthropathy. There is mild bilateral facet joint arthropathy. There is moderate left and mild right neural foraminal stenosis. There is no demonstrated spinal canal stenosis. C7-T1: Normal annular contour. There is no uncovertebral joint arthropathy. There is mild bilateral facet joint arthropathy. There is no neural foraminal stenosis. There is no demonstration spinal canal stenosis. CT/CT cervical spine wo IV con IMPRESSION: 1. No evidence of acute fracture or traumatic subluxation of the cervical spine. 2. Moderate multilevel degenerative spondyloarthropathy of the cervical spine as described in detail above. Most notably on this limited exam without intrathecal contrast, there appears to be mild spinal canal stenosis at C5-C6. Moderate neural foraminal stenoses from C4-C7. 3. Bilateral nonobstructive sialoliths. Electronically signed by: Jw Wills DO 06/06/2024 06:53 PM EDT
--- NOTE | ~2024-06-06 | XR_ITS ---
EXAMINATION: XR CHEST CLINICAL INFORMATION: Chest pain COMPARISON: Chest xray on 03/14/21 TECHNIQUE: 2 views of the chest were obtained. FINDINGS: No significant abnormality is noted involving the heart, lungs, mediastinum, bony thorax or soft tissues. XR/XR chest 2V IMPRESSION: Unremarkable examination. Electronically signed by: Lanette Duran MD 06/06/2024 03:13 PM EDT RP
[2024-06-06 07:55] VITALS: BP 177/73; PULSE 110; RESP 16; TEMP 36.5; O2SAT 98; BMI 21.5
--- NOTE | 2024-06-06 08:01 | ECG_ITS ---
Test Reason : cp Blood Pressure : / mmHG Vent. Rate : 107 BPM Atrial Rate : 107 BPM P-R Int : 170 ms QRS Dur : 126 ms QT Int : 374 ms P-R-T Axes : 073 063 006 degrees QTc Int : 499 ms Sinus tachycardia with Premature atrial complexes Possible Left atrial enlargement Right bundle branch block Abnormal ECG When compared with ECG of 26-JUN-2022 12:30, Premature atrial complexes are now Present T wave inversion now evident in Inferior leads Heart rate has increased Referred By: Generic ED Physician Electronically Signed By:JHON ARRIAGA
[2024-06-06 08:21] LABS: MANUAL DIFF FLAG NO
[2024-06-06 08:24] LABS: Basophils Absolute Auto 0.1 X10*3/uL (0.0-0.2); Basophils Percent Auto 0.4 % (0-2); Eosinophils Percent Auto 0.1 % (0-4); Hematocrit 30.1 % (37.0-47.0); Imm Gran Abs Auto 0.05 X10*3/uL (0.00-0.03); Imm Gran Pct Auto 0.4 % (0.0-0.4); Lymphocytes Absolute Auto 1.7 X10*3/uL (1.2-4.9); Lymphocytes Percent Auto 12.4 % (20-40); Mean Corpuscular HGB Conc 33.2 g/dl (31.0-35.0); Mean Corpuscular Hemoglobin 26.5 pg (27.0-33.0); Mean Corpuscular Volume 79.8 fL (80.0-98.0); Mean Platelet Volume 8.7 fL (9.4-12.3); Monocytes Absolute Auto 0.7 X10*3/uL (0.1-1.2); Monocytes Percent Auto 5.1 % (2-11); Neutrophils Absolute Auto 11.4 x10*3/uL (2.0-8.3); Neutrophils Percent Auto 81.6 % (45-73); Platelet Count 469 X10*3/uL (160-400); Red Blood Count 3.77 X10*6/uL (4.20-5.50); Red Cell Distribution Width 14.3 % (11.0-16.0); White Blood Count 13.9 X10*3/uL (4.8-10.8)
[2024-06-06 09:00] LABS: Troponin-I High Sensitivity 7.5 ng/L (<3.5-17.0)
[2024-06-06 09:02] LABS: Alanine Aminotransferase 13 U/L (0-31); Albumin Level 3.9 g/dL (3.5-5.0); Alkaline Phosphatase 74 U/L (39-117); Anion Gap 18 (12-20); Aspartate Amino Transferase 15 U/L (5-31); Bilirubin Total 0.6 mg/dL (0.0-1.0); Blood Urea Nitrogen 16 mg/dL (9-16); Carbon Dioxide 27 mmol/L (22-29); Chloride 91 mmol/L (96-108); Estimated Glomerular Filt Rate 44; Potassium 3.2 mmol/L (3.3-5.1); Sodium 133 mmol/L (135-145); Total Protein 7.1 g/dL (6.5-8.0)
[2024-06-06 09:17] LABS: Glucose Random 403 mg/dL (60-115)
[2024-06-06 12:38] VITALS: BP 167/79; PULSE 86; RESP 18; TEMP 36.4; O2SAT 96
--- NOTE | 2024-06-06 12:38 | ED_ITS ---
HPI - General Adult General Chief complaint: Arrhythmia/Palpitations Stated complaint: r shoulder pain across neck Time Seen by Provider: 06/06/24 13:16 Source: patient and family (daughter) Mode of arrival: ambulatory Limitations: no limitations History of Present Illness ED Provider: JANICE AVILA PA-C HPI narrative: 83 year old female with pmhx significant for HDL, HTN, T2DM on metformin presents to the ED today for evaluation of bilateral shoulder pain extending into her neck x2-3 weeks. Patient reports pain is worse with movement of her upper extremities, specifically when trying to sleep at night or put her bra on. Reports associated tingling into her left upper extremity. Denies recent injury/ trauma/ or fall. No history of similar. She denies headache, dizziness, fatigue, vision changes, chest pain, palpitations, shortness of breath, fatigue, back pain. Related Data Previous Rx's ?Medication ?Instructions ?Recorded cefuroxime axetil 500 mg tablet 500 mg PO BID 7 days #14 tabs 03/14/21 acetaminophen 325 mg capsule 325 mg PO Q4H PRN pain #30 caps 06/06/24 (Tylenol) Allergies Allergy/AdvReac Type Severity Reaction Status Date / Time latex [LATEX] Allergy Severe SEVERE Verified 06/06/24 08:01 LOCAL REACTION; OOZING Review of Systems 2 Review of Systems: Constitutional: No fever, chills, fatigue, night sweats, weight changes ENT/Mouth: No ear pain, hearing loss, nasal congestion, sinus pain, rhinorrhea, sore throat Eyes: No eye pain, swelling, redness, vision changes, discharge Cardio: No chest pain, palpitations, CHOUDHURY, orthopnea, peripheral edema Pulm: No SOB, cough, sputum, wheezing, dyspnea, hemoptysis GI: No nausea, vomiting, hematemesis, abdominal pain, diarrhea, constipation, hematochezia, melena : No irregular bleeding, dysuria, frequency, urgency, hesitancy, hematuria, flank pain, urinary flow changes, urinary incontinence or retention MSK: No neck pain, joint pain, myalgias, +shoulder/back pain Skin: No lesions, rashes Neuro: No weakness, numbness, paresthesias, LOC, dizziness, headache Psych: No anxiety/panic, depression, SI/HI, AH/VH All other systems reviewed and are negative. FOR[facility]LY [facility] Past Medical History Attestation statement: The following information was validated with the patient. Source: old records reviewed and nursing notes reviewed Medical History High cholesterol Diabetes HTN (hypertension) Social History Social History Alcohol intake: never Patient Tobacco Use Status: Never used Tobacco Smoked in Last 30 Days: No Use of substances other than those prescribed or required for medical reasons: No Advance Directives: No Advance Directives Information Provided: Yes Do you have a plan to hurt others: No Plan Physical Exam ED Vital Signs: Vital Signs - 24 hr 06/06/24 07:55 06/06/24 12:38 06/06/24 15:27 Temperature 97.7 F 97.6 F Pulse Rate 110 H 86 76 Respiratory Rate 16 18 19 Blood Pressure 177/73 H 167/79 H 162/69 H Pulse Oximetry 98 96 95 Oxygen Delivery Method Room Air Room Air Room Air 06/06/24 17:40 06/06/24 19:18 Temperature 97.9 F 97.9 F Pulse Rate 75 75 Respiratory Rate 15 15 Blood Pressure 165/66 H 165/66 H Pulse Oximetry 97 97 Oxygen Delivery Method Room Air Room Air BMI result Body Mass Index 21.5 Patient hypertensive to 167/79. vitals otherwise wnl. General: Well appearing, in no acute distress. Skin: Warm, dry, intact. No rashes or lesions. Head: Normocephalic, atraumatic. EENT: Hearing is intact b/l. Conjunctiva clear. Sclera is anicteric. PERRLA. EOM intact. Moist mucous membranes.? Neck: Supple without LAD. FROM. Trachea midline.? Cardiac: Chest wall symmetric. RRR. No MRG. No JVD. Lungs: Normal respiratory effort without accessory muscle use. CTA bilaterally. No rales, rhonchi, or wheezes.? Abdomen: Soft, non-tender, non-distended. No rebound tenderness or guarding. Positive BS x4. Back: No midline spinous or paraspinal tenderness. No step off deformity. Ext: Upper and lower extremities atraumatic, without tenderness, deformity, swelling or erythema. Full ROM throughout. Strength 5/5 throughout. Capillary refill <2 seconds in all extremities. Pulses 2+ equal and bilateral. Neuro: AOx3. Normal speech. CN 2-12 grossly intact. Strength 5/5 intact throughout. No saddle anesthesia. Sensation intact to light touch. NV intact distally. Reflexes 2+ bilaterally. Ambulating with steady gait. Psych: Appropriate mood and affect. Responds appropriately to questions. Course Course Course Narrative: RME performed by Kayli Ugarte PA-C. Patient is an 83 year old assigned female at presenting to the emergency department with bilateral shoulder pain that radiates into the back. Detailed physical exam and review of systems are deferred to the heel caser. EKG, labs, imaging, and swabs ordered. Patient placed back in the waiting room pending room availability and results. Reevaluation(s) Reevaluation #1: 1320 -- CBC showing leukocytosis to 13,900 with left shift. Microcytic anemia, decreased when compared to priors however above transfusion threshold. Chemistry showing hyponatremia to 133. Hypokalemia to 3.2 Chloride 91. Random glucose 403. No anion gap. no WILLIE. normal liver function. initial troponin 7.5. Sinus tachycardia with PVCs at a rate of 107 beats per minute, RBBB present on prior EKGs, no acute ischemic changes or ST elevations. Will repeat for delta to rule out NSTEMI. > IV fluids and potassium ordered for repletion. plan to repeat BMP. >> CT c spine, CXR, repeat trop, viral serology, vbg pending 1546 -- repeat POC 119. VBG showing metabolic acidosis. delta troponin 7.6. ACS unlikely. she has tested negative for covid, flu, rsv. CXR without infiltrate or consolidation to suggest pneumonia. Urine without infection. > patient stable at the end of my shift. sign out given to Tameka CASTILLO pending repeat BMP, CT cervical spine results, and disposition. Reevaluation #2: Repat BMP improving. Imaging pending. Time: 18:27 Reevaluation #3: CT cervical spine with no acute fractures or traumatic subluxations. Moderate multilevel degenerative changes. Mild spinal canal stenosis at C5 through C6 moderate neural foraminal stenosis from C4-C7. No signs of cervical myelopathy. Bilateral nonobstructive sialoiths . Patient feeling better. Educated patient on diagnosis and treatment plan, answered all question, patient verbalizes understanding. At this time patient will be discharged home, advised to return with new or worsening symptoms. Educated on worrisome signs and symptoms and when to return. At this time I feel comfortable discharge home. Medications Administered Discontinued Medications Generic Name Dose Route Start Last Admin Trade Name Malu PRN Reason Stop Dose Admin Acetaminophen 650 mg 06/06/24 13:37 06/06/24 14:34 Acetaminophen 325 Mg Tablet PO 06/06/24 13:38 650 mg ONCE ONE Administration Sodium Chloride 1,000 mls @ 999 mls/hr 06/06/24 13:30 06/06/24 18:12 Ns IV 06/06/24 14:30 Infused .Q1H1M MARA Infusion Potassium Chloride 10 meq in 100 mls @ 100 mls/hr 06/06/24 13:30 06/06/24 18:12 Potassium Chloride/H20 IV 06/06/24 15:29 Infused Q1H MARA Infusion Medical Decision Making Medical Decision Making MDM Narrative: 83 year old female with pmhx significant for HDL, HTN, T2DM on metformin presents to the ED today for evaluation of bilateral shoulder pain extending into her neck x2-3 weeks. Patient hypertensive to 167/79, vitals otherwise WNL. She is nontoxic appearing in no acute distress. On exam there is no midline spinous tenderness or step off deformity. ambulating with steady gait to the bathroom. RRR. Lungs are CTA bilaterally. Differential diagnosis includes ACS, arrhythmia, msk sprain/ strain, cervical spasm, cervical radiculopathy, hyperglycemia, pneumonia, urinary tract infection. Plan for labs, ekg, cxr, ct c spine, UA, pain control, and re-evaluation. Differential Diagnosis Differential Diagnoses: The differential diagnosis associated with the presentation includes as above. Admission/Observation Consideration of admission/observation: Escalation of care including admission/observation considered admission considered on presentation Lab Data [facility] Lab Attestation statement: I reviewed the patient's lab results. as above. 06/06/24 08:15 06/06/24 16:59 Labs: Lab Results 06/06/24 06/06/24 06/06/24 Range/Units 08:15 13:47 13:49 WBC 13.9 H (4.8-10.8) X10*3/uL RBC 3.77 L (4.20-5.50) X10*6/uL Hgb 10.0 L (12.0-16.0) g/dl Hct 30.1 L (37.0-47.0) % MCV 79.8 L (80.0-98.0) fL MCH 26.5 L (27.0-33.0) pg MCHC 33.2 (31.0-35.0) g/dl RDW 14.3 (11.0-16.0) % Plt Count 469 H (160-400) X10*3/uL MPV 8.7 L (9.4-12.3) fL Immature Gran % (Auto) 0.4 (0.0-0.4) % Neut % (Auto) 81.6 H (45-73) % Lymph % (Auto) 12.4 L (20-40) % [place] % (Auto) 5.1 (2-11) % Eos % (Auto) 0.1 (0-4) % Baso % (Auto) 0.4 (0-2) % Lymph # (Auto) 1.7 (1.2-4.9) X10*3/uL [place] # (Auto) 0.7 (0.1-1.2) X10*3/uL Eos # (Auto) 0.0 (0.0-0.4) X10*3/uL Baso # (Auto) 0.1 (0.0-0.2) X10*3/uL Abs Immat Gran (auto) 0.05 H (0.00-0.03) X10*3/uL Absolute Neuts (auto) 11.4 H (2.0-8.3) x10*3/uL Absolute Nucleated RBC 0.000 (0.0-0.012) X10*3/uL Nucleated RBC % (auto) 0.0 (0.0-0.2) /100WBC VBG pH (7.32-7.43) VBG pCO2 mmHg VBG pO2 mmHg VBG HCO3 (22-26) mmol/L VBG O2 Saturation % VBG Base Excess mmol/L Sodium 133 L (135-145) mmol/L Potassium 3.2 L (3.3-5.1) mmol/L Chloride 91 L (96-108) mmol/L Carbon Dioxide 27 (22-29) mmol/L Anion Gap 18 (12-20) BUN 16 (9-16) mg/dL Creatinine 1.16 (0.5-1.4) mg/dL Estim Creat Clear Calc 28.0 Estimated GFR 44 POC Glucose (60-115) mg/dL Random Glucose 403 H* (60-115) mg/dL Osmolality (281-305) mosm/kg Calcium 9.0 (8.4-10.2) mg/dL Total Bilirubin 0.6 (0.0-1.0) mg/dL AST 15 (5-31) U/L ALT 13 (0-31) U/L Alkaline Phosphatase 74 (39-117) U/L Troponin I High Sens 7.5 (<3.5-17.0) ng/L Total Protein 7.1 (6.5-8.0) g/dL Albumin 3.9 (3.5-5.0) g/dL Beta-Hydroxybutyrate (0.02-0.27) mmol/L Urine Color Yellow Urine Appearance Clear Urine pH 6.5 (5.0-9.0) Ur Specific [place] 1.010 (1.005-1.025) Urine Protein Negative (Neg-Trace) mg/dL Urine Glucose (UA) 100 H (Negative) mg/dL Urine Ketones Negative (Negative) mg/dL Urine Blood Negative (Negative) Urine Nitrite Negative (Negative) Ur Leukocyte Esterase Trace H (Negative) Urine RBC 0-2 (0-2) /HPF Urine WBC 0-5 (0-5) /HPF Ur Squamous Epith Cells 0-2 (0-2) /HPF Urine Bacteria None Seen (None Seen) Hyaline Casts 0-2 (0-2) /LPF Influenza Type A (PCR) NEGATIVE (Negative) Influenza Type B (PCR) NEGATIVE (Negative) RSV RNA Qual (PCR) NEGATIVE (Negative) SARS-CoV-2 RNA (RT-PCR) NEGATIVE (Negative) 06/06/24 06/06/24 06/06/24 Range/Units 13:56 14:02 15:49 WBC (4.8-10.8) X10*3/uL RBC (4.20-5.50) X10*6/uL Hgb (12.0-16.0) g/dl Hct (37.0-47.0) % MCV (80.0-98.0) fL MCH (27.0-33.0) pg MCHC (31.0-35.0) g/dl RDW (11.0-16.0) % Plt Count (160-400) X10*3/uL MPV (9.4-12.3) fL Immature Gran % (Auto) (0.0-0.4) % Neut % (Auto) (45-73) % Lymph % (Auto) (20-40) % [place] % (Auto) (2-11) % Eos % (Auto) (0-4) % Baso % (Auto) (0-2) % Lymph # (Auto) (1.2-4.9) X10*3/uL [place] # (Auto) (0.1-1.2) X10*3/uL Eos # (Auto) (0.0-0.4) X10*3/uL Baso # (Auto) (0.0-0.2) X10*3/uL Abs Immat Gran (auto) (0.00-0.03) X10*3/uL Absolute Neuts (auto) (2.0-8.3) x10*3/uL Absolute Nucleated RBC (0.0-0.012) X10*3/uL Nucleated RBC % (auto) (0.0-0.2) /100WBC VBG pH 7.57 H (7.32-7.43) VBG pCO2 37 mmHg VBG pO2 48 mmHg VBG HCO3 34 H (22-26) mmol/L VBG O2 Saturation 95.0 % VBG Base Excess 12.1 mmol/L Sodium (135-145) mmol/L Potassium (3.3-5.1) mmol/L Chloride (96-108) mmol/L Carbon Dioxide (22-29) mmol/L Anion Gap (12-20) BUN (9-16) mg/dL Creatinine (0.5-1.4) mg/dL Estim Creat Clear Calc Estimated GFR POC Glucose 119 H (60-115) mg/dL Random Glucose (60-115) mg/dL Osmolality 280 L (281-305) mosm/kg Calcium (8.4-10.2) mg/dL Total Bilirubin (0.0-1.0) mg/dL AST (5-31) U/L ALT (0-31) U/L Alkaline Phosphatase (39-117) U/L Troponin I High Sens 7.6 (<3.5-17.0) ng/L Total Protein (6.5-8.0) g/dL Albumin (3.5-5.0) g/dL Beta-Hydroxybutyrate 0.15 (0.02-0.27) mmol/L Urine Color Urine Appearance Urine pH (5.0-9.0) Ur Specific [place] (1.005-1.025) Urine Protein (Neg-Trace) mg/dL Urine Glucose (UA) (Negative) mg/dL Urine Ketones (Negative) mg/dL Urine Blood (Negative) Urine Nitrite (Negative) Ur Leukocyte Esterase (Negative) Urine RBC (0-2) /HPF Urine WBC (0-5) /HPF Ur Squamous Epith Cells (0-2) /HPF Urine Bacteria (None Seen) Hyaline Casts (0-2) /LPF Influenza Type A (PCR) (Negative) Influenza Type B (PCR) (Negative) RSV RNA Qual (PCR) (Negative) SARS-CoV-2 RNA (RT-PCR) (Negative) 06/06/24 Range/Units 16:59 WBC (4.8-10.8) X10*3/uL RBC (4.20-5.50) X10*6/uL Hgb (12.0-16.0) g/dl Hct (37.0-47.0) % MCV (80.0-98.0) fL MCH (27.0-33.0) pg MCHC (31.0-35.0) g/dl RDW (11.0-16.0) % Plt Count (160-400) X10*3/uL MPV (9.4-12.3) fL Immature Gran % (Auto) (0.0-0.4) % Neut % (Auto) (45-73) % Lymph % (Auto) (20-40) % [place] % (Auto) (2-11) % Eos % (Auto) (0-4) % Baso % (Auto) (0-2) % Lymph # (Auto) (1.2-4.9) X10*3/uL [place] # (Auto) (0.1-1.2) X10*3/uL Eos # (Auto) (0.0-0.4) X10*3/uL Baso # (Auto) (0.0-0.2) X10*3/uL Abs Immat Gran (auto) (0.00-0.03) X10*3/uL Absolute Neuts (auto) (2.0-8.3) x10*3/uL Absolute Nucleated RBC (0.0-0.012) X10*3/uL Nucleated RBC % (auto) (0.0-0.2) /100WBC VBG pH (7.32-7.43) VBG pCO2 mmHg VBG pO2 mmHg VBG HCO3 (22-26) mmol/L VBG O2 Saturation % VBG Base Excess mmol/L Sodium 138 (135-145) mmol/L Potassium 3.5 (3.3-5.1) mmol/L Chloride 99 (96-108) mmol/L Carbon Dioxide 26 (22-29) mmol/L Anion Gap 17 (12-20) BUN 11 (9-16) mg/dL Creatinine 0.79 (0.5-1.4) mg/dL Estim Creat Clear Calc 41.1 Estimated GFR > 60 POC Glucose (60-115) mg/dL Random Glucose 119 H (60-115) mg/dL Osmolality (281-305) mosm/kg Calcium 8.9 (8.4-10.2) mg/dL Total Bilirubin (0.0-1.0) mg/dL AST (5-31) U/L ALT (0-31) U/L Alkaline Phosphatase (39-117) U/L Troponin I High Sens (<3.5-17.0) ng/L Total Protein (6.5-8.0) g/dL Albumin (3.5-5.0) g/dL Beta-Hydroxybutyrate (0.02-0.27) mmol/L Urine Color Urine Appearance Urine pH (5.0-9.0) Ur Specific [place] (1.005-1.025) Urine Protein (Neg-Trace) mg/dL Urine Glucose (UA) (Negative) mg/dL Urine Ketones (Negative) mg/dL Urine Blood (Negative) Urine Nitrite (Negative) Ur Leukocyte Esterase (Negative) Urine RBC (0-2) /HPF Urine WBC (0-5) /HPF Ur Squamous Epith Cells (0-2) /HPF Urine Bacteria (None Seen) Hyaline Casts (0-2) /LPF Influenza Type A (PCR) (Negative) Influenza Type B (PCR) (Negative) RSV RNA Qual (PCR) (Negative) SARS-CoV-2 RNA (RT-PCR) (Negative) Independent Interpretation I performed an independent interpretation of an: EKG, Plain X-Ray and CT Scan Interpretation: EKG showing sinus tachy with PVCs, rate of 107 bpm, RBB present on prior EKGs, no acute ischemic changes or ST elevations. CXR without infiltrate or consolidation to suggest pneumonia, agree with radiologist's interpretation. CT c spine without acute fracture, agree with radiologist's interpretation. Radiology Impression Discussion of test interpretation with radiology: I have reviewed the radiologist's reading. Radiologist Impression: EXAMINATION: XR CHEST CLINICAL INFORMATION: Chest pain COMPARISON: Chest xray on 03/14/21 TECHNIQUE: 2 views of the chest were obtained. FINDINGS: No significant abnormality is noted involving the heart, lungs, mediastinum, bony thorax or soft tissues. XR/XR chest 2V IMPRESSION: Unremarkable examination. Electronically signed by: Lanette Duran MD 06/06/2024 03:13 PM EDT RP EXAMINATION: CT CERVICAL SPINE WITHOUT CONTRAST CLINICAL INFORMATION: Neck pain radiating down the upper extremities. COMPARISON: None available. TECHNIQUE: Multidetector helical imaging of the cervical spine was obtained without intravenous contrast. Multiple axial reformats and coronal/sagittal reconstructions were created the technologist workstation for review. This CT examination was performed using dose optimization techniques as appropriate, variously including the following: *Automated exposure control. *Adjustment of mA and/or kV according to patient size (this includes techniques or standardized protocols for targeted exams where dose is matched to indication/reason for exam; i.e. extremities or head). *Use of iterative reconstruction technique. DLP: 274 mGy-cm FINDINGS: The atlantooccipital and atlantoaxial articulations remain well aligned. Moderate degenerative arthropathy of the atlantodental articulation. Minimal degenerative stepwise anterolistheses of C7-T2. Otherwise, there is anatomic alignment of the vertebral bodies and posterior elements. No evidence of acute fracture or subluxation. The vertebral body heights are maintained. Moderate degenerative disc disease from C2-C6. There is no prevertebral soft tissue swelling. Multiple nonobstructive subcentimeter stones in the bilateral submandibular and parotid glands. The thyroid gland and remaining cervical soft tissues are within normal limits. The lung apices demonstrate no abnormalities. SPINAL LEVELS: C2-C3: Minimal disc-osteophyte complex. There is mild bilateral uncovertebral joint arthropathy. There is mild bilateral facet joint arthropathy. There is no neural foraminal stenosis. There is no demonstrated spinal canal stenosis. C3-C4: Mild disc-osteophyte complex. There is moderate right and mild left uncovertebral joint arthropathy. There is mild bilateral facet joint arthropathy. There is mild bilateral neural foraminal stenosis. There is no demonstrated spinal canal stenosis. C4-C5: Mild disc-osteophyte complex. There is moderate left and mild right uncovertebral joint arthropathy. There is severe left and mild right facet joint arthropathy. There is moderate left and mild right neural foraminal stenosis. There is no demonstrated spinal canal stenosis. C5-C6: Moderate disc-osteophyte complex. There is moderate left and mild right uncovertebral joint arthropathy. There is severe left and mild right facet joint arthropathy. There is moderate bilateral neural foraminal stenosis. There appears to be mild spinal canal stenosis. C6-C7: Mild disc-osteophyte complex. There is moderate left and mild right uncovertebral joint arthropathy. There is mild bilateral facet joint arthropathy. There is moderate left and mild right neural foraminal stenosis. There is no demonstrated spinal canal stenosis. C7-T1: Normal annular contour. There is no uncovertebral joint arthropathy. There is mild bilateral facet joint arthropathy. There is no neural foraminal stenosis. There is no demonstration spinal canal stenosis. CT/CT cervical spine wo IV con IMPRESSION: 1. No evidence of acute fracture or traumatic subluxation of the cervical spine. 2. Moderate multilevel degenerative spondyloarthropathy of the cervical spine as described in detail above. Most notably on this limited exam without intrathecal contrast, there appears to be mild spinal canal stenosis at C5-C6. Moderate neural foraminal stenoses from C4-C7. 3. Bilateral nonobstructive sialoliths. Electronically signed by: Jw Wills DO 06/06/2024 06:53 PM EDT RP Independent Historian Clinical information obtained from an independent historian. History obtained from or confirmed by: Other (daughter) External Record Review External record reviewed: Inpatient record, Office record, Outpatient record, Prior outpatient labs, Prior outpatient radiology, Primary care record and Outside ED record Prescription Management I considered prescription management with: Pain Medication Chronic Conditions Patient?s care impacted by: Diabetes and Hypertension Social Determinants Patient?s care significantly limited by Social Determinants of Health including: Other Social Determinant of Health Critical Care Time Critical Care Time Critical Care Time: Yes Total Critical Care Time: 33 Attestation: Critical care time in the amount of 33 minutes has been provided to the patient in terms of direct patient care, frequent reevaluation, IV potassium, review and interpretation of medical data and results, and management of potentially life- threatening conditions. This is all outside of any medical procedures. Discharge Plan Discharge Clinical Impression: Hypokalemia, Hyperglycemia, Acute shoulder pain, Degenerative arthritis Patient Disposition: Home, Self-Care Instructions: Hypokalemia (ED), Arm Pain (ED) Additional Instructions: Take your medications as prescribed. If you were prescribed antibiotics today, it is important that you take your medication to their entirety, do not skip any doses, do not finish them early. Follow-up with your primary care provider this week. Return to the emergency department with new or worsening symptoms. Such as fevers, chills, chest pain, shortness of breath, nausea, vomiting, dizziness, headache, vision changes, lethargy In case of emergency call 911 CT/CT cervical spine wo IV con IMPRESSION: 1. No evidence of acute fracture or traumatic subluxation of the cervical spine. 2. Moderate multilevel degenerative spondyloarthropathy of the cervical spine as described in detail above. Most notably on this limited exam without intrathecal contrast, there appears to be mild spinal canal stenosis at C5-C6. Moderate neural foraminal stenoses from C4-C7. 3. Bilateral nonobstructive sialoliths. Prescriptions: New acetaminophen [Tylenol] 325 mg capsule 325 mg PO Q4H PRN (Reason: pain) Qty: 30 0RF No Action cefuroxime axetil 500 mg tablet 500 mg PO BID 7 Days Qty: 14 0RF Referrals: Tommy Olivares MD [Primary Care Provider] - 2 days Interventions: ED Discharge Assessment Last Done: 06/06/24 19:18 Discharge Date/Time: 06/06/24 19:19 Print Language: [place]an
--- NOTE | 2024-06-06 13:59 | PC.NURSE ---
PIV established, labs drawn/sent.
[2024-06-06 14:04] LABS: Appearance Urine Clear; Color Urine Yellow; Glucose Urine UA 100 mg/dL (Negative); Leukocyte Esterase Urine Trace (Negative); Nitrite Urine Negative (Negative); PH 6.5 (5.0-9.0); UMIC TRIGGER UACC YES; Urine Blood Negative (Negative); Urine Ketones Negative (Negative); Urine Protein Negative (Neg-Trace)
[2024-06-06 14:05] LABS: VBG Base Excess 12.1 mmol/L; VBG HCO3 34 mmol/L (22-26); VBG pCO2 37 mmHg; VBG pH 7.57 (7.32-7.43); VBG pO2 48 mmHg
[2024-06-06 14:06] LABS: Bacteria Urine None Seen (None Seen); Hyaline Casts Urine 0-2 /LPF (0-2); RBC Urine 0-2 /HPF (0-2); Squamous Epithelial Cell Urine 0-2 /HPF (0-2); WBC Urine 0-5 /HPF (0-5)
--- NOTE | 2024-06-06 14:14 | PC.NURSE ---
Pt to CT Scan.
[2024-06-06 14:16] LABS: Beta-Hydroxybutyrate 0.15 mmol/L (0.02-0.27)
[2024-06-06 14:24] LABS: Troponin-I High Sensitivity 7.6 ng/L (<3.5-17.0)
[2024-06-06] MEDS: 0.9 % Sodium Chloride 1,000 ML 999 ML IV (14:31)
[2024-06-06] MEDS: Potassium Chloride/H20 10 MEQ/100 ML PIGGYBACK 100 MEQ IV ×2 (14:32→15:29)
[2024-06-06 14:34] LABS: Osmolality, Serum 280 mosm/kg (281-305)
[2024-06-06] MEDS: Acetaminophen 325 MG TABLET 650 MG PO (14:34)
--- NOTE | 2024-06-06 14:51 | PC.NURSE ---
Per Annie APPIAH, pt does not need ordered glucose gel. Pt ate a meal, reports he feels better.
[2024-06-06 15:27] VITALS: BP 162/69; PULSE 76; RESP 19; O2SAT 95
[2024-06-06 15:33] LABS: Influenza A PCR NEGATIVE (Negative); Influenza B PCR NEGATIVE (Negative); Resp Syncy Virus RNA Qual PCR NEGATIVE (Negative); SARS COV2 PCR INHOUSE NEGATIVE (Negative)
[2024-06-06 15:56] LABS: Glucose, Whole Blood 119 mg/dL (60-115)
[2024-06-06 16:28] LABS: Venous Blood Gas Refer to POC result
--- NOTE | 2024-06-06 17:00 | MHC.EDTECH ---
Patient repeated bmp drawn and sent to lab.
[2024-06-06 17:14] LABS: Anion Gap 17 (12-20); Blood Urea Nitrogen 11 mg/dL (9-16); Calcium 8.9 mg/dL (8.4-10.2); Carbon Dioxide 26 mmol/L (22-29); Chloride 99 mmol/L (96-108); Creatinine Clr Calc Pharmacy 41.1; Estimated Glomerular Filt Rate > 60; Glucose Random 119 mg/dL (60-115); Potassium 3.5 mmol/L (3.3-5.1); Sodium 138 mmol/L (135-145)
[2024-06-06 17:40] VITALS: BP 165/66; PULSE 75; RESP 15; TEMP 36.6; O2SAT 97
[2024-06-06 19:18] VITALS: BP 165/66; PULSE 75; RESP 15; TEMP 36.6; O2SAT 97
== END 2024-06-06 19:19 | disposition home or self-care (01) ==
PROVIDERS: Physician Assistant Medical; Emergency Provider Emergency Medicine; PCP Family Medicine
DX: I49.9 Cardiac arrhythmia, unspecified (principal); R00.2 Palpitations; M25.512 Pain in left shoulder; M25.511 Pain in right shoulder; E11.65 Type 2 diabetes mellitus with hyperglycemia; E23.2 Diabetes insipidus; M54.2 Cervicalgia; R07.89 Other chest pain; I10 Essential (primary) hypertension; Z03.818 Encounter for observation for suspected exposure to other biological agents ruled out; Z79.899 Other long term (current) drug therapy
CPT/HCPCS: 0241U; 36415; 71046; 72125; 80048; 80053; 81001; 81003; 82010; 82803; 82947; 83930; 84484; 85025; 93005; 96361; 96374; 99285; J3480

== ENCOUNTER 2024-06-17 10:17 | Outpatient (REF) | payer MEDICARE, SELFPAY ==
[2024-06-17 10:46] LABS: MANUAL DIFF FLAG NO
[2024-06-17 10:49] LABS: Basophils Absolute Auto 0.1 X10*3/uL (0.0-0.2); Basophils Percent Auto 0.6 % (0-2); Eosinophils Absolute Auto 0.1 X10*3/uL (0.0-0.4); Eosinophils Percent Auto 1.3 % (0-4); Hematocrit 32.5 % (37.0-47.0); Hemoglobin 10.2 g/dl (12.0-16.0); Imm Gran Abs Auto 0.04 X10*3/uL (0.00-0.03); Imm Gran Pct Auto 0.4 % (0.0-0.4); Lymphocytes Absolute Auto 2.7 X10*3/uL (1.2-4.9); Lymphocytes Percent Auto 24.3 % (20-40); Mean Corpuscular HGB Conc 31.4 g/dl (31.0-35.0); Mean Corpuscular Hemoglobin 25.2 pg (27.0-33.0); Mean Corpuscular Volume 80.2 fL (80.0-98.0); Mean Platelet Volume 8.6 fL (9.4-12.3); Monocytes Absolute Auto 0.7 X10*3/uL (0.1-1.2); Monocytes Percent Auto 6.5 % (2-11); Neutrophils Absolute Auto 7.3 x10*3/uL (2.0-8.3); Neutrophils Percent Auto 66.9 % (45-73); Platelet Count 499 X10*3/uL (160-400); Red Blood Count 4.05 X10*6/uL (4.20-5.50); Red Cell Distribution Width 14.6 % (11.0-16.0); White Blood Count 10.9 X10*3/uL (4.8-10.8)
[2024-06-17 11:20] LABS: Iron 30 mcg/dL (30-160); Percent Iron Saturation 10 % (15-50); Total Iron Binding Capacity 311 mcg/dL (228-428); Unsaturated Iron Binding 281 ug/dL
[2024-06-17 11:33] LABS: Ferritin 70 ng/mL (10-250)
[2024-06-17 11:49] LABS: Vitamin B12 192 pg/mL (200-900)
== END 2024-06-17 10:18 | disposition home or self-care (01) ==
LOC: HO.10HDL 10:17
PROVIDERS: Visit Provider Family Medicine
DX: D64.9 Anemia, unspecified (principal)
CPT/HCPCS: 36415; 82607; 82728; 82746; 83540; 85025

== ENCOUNTER 2024-07-21 08:50 | Outpatient (REF) | payer MEDICARE, SELFPAY ==
[2024-07-21 10:48] LABS: MANUAL DIFF FLAG NO
[2024-07-21 11:00] LABS: Basophils Absolute Auto 0.1 X10*3/uL (0.0-0.2); Basophils Percent Auto 0.8 % (0-2); Eosinophils Absolute Auto 0.1 X10*3/uL (0.0-0.4); Hemoglobin 9.9 g/dl (12.0-16.0); Imm Gran Abs Auto 0.04 X10*3/uL (0.00-0.03); Imm Gran Pct Auto 0.4 % (0.0-0.4); Immature Retic Fraction 13.3 % (3.0-15.9); Lymphocytes Absolute Auto 1.9 X10*3/uL (1.2-4.9); Lymphocytes Percent Auto 16.8 % (20-40); Mean Corpuscular HGB Conc 31.9 g/dl (31.0-35.0); Mean Corpuscular Hemoglobin 24.6 pg (27.0-33.0); Mean Corpuscular Volume 77.1 fL (80.0-98.0); Mean Platelet Volume 8.5 fL (9.4-12.3); Monocytes Absolute Auto 0.7 X10*3/uL (0.1-1.2); Monocytes Percent Auto 6.4 % (2-11); Neutrophils Absolute Auto 8.3 x10*3/uL (2.0-8.3); Neutrophils Percent Auto 74.6 % (45-73); Platelet Count 486 X10*3/uL (160-400); Red Blood Count 4.02 X10*6/uL (4.20-5.50); Red Cell Distribution Width 15.1 % (11.0-16.0); Retic HGB Equivalent 27.8 pg (30.0-35.0); Reticulocyte Percent 1.1 % (0.5-1.8); Reticulocytes Absolute 0.046 X10*6/uL (0.026-0.095); White Blood Count 11.2 X10*3/uL (4.8-10.8)
[2024-07-21 11:30] LABS: Ferritin 74 ng/mL (10-250)
[2024-07-21 11:44] LABS: Erythrocyte Sedimentation Rate 67 MM/HR (0-20)
== END 2024-07-21 08:51 | disposition home or self-care (01) ==
LOC: HO.10HDL 08:50
PROVIDERS: Visit Provider Family Medicine
DX: D64.9 Anemia, unspecified (principal)
CPT/HCPCS: 36415; 82728; 85025; 85045; 85652

== ENCOUNTER 2024-09-27 09:01 | Outpatient (REF) | payer MEDICARE, SELFPAY ==
[2024-09-27 10:52] LABS: MANUAL DIFF FLAG NO
[2024-09-27 11:00] LABS: Basophils Absolute Auto 0.1 X10*3/uL (0.0-0.2); Eosinophils Absolute Auto 0.2 X10*3/uL (0.0-0.4); Eosinophils Percent Auto 2.2 % (0-4); Hematocrit 35.1 % (37.0-47.0); Hemoglobin 11.1 g/dl (12.0-16.0); Imm Gran Abs Auto 0.03 X10*3/uL (0.00-0.03); Imm Gran Pct Auto 0.3 % (0.0-0.4); Lymphocytes Absolute Auto 4.1 X10*3/uL (1.2-4.9); Lymphocytes Percent Auto 37.3 % (20-40); Mean Corpuscular HGB Conc 31.6 g/dl (31.0-35.0); Mean Corpuscular Hemoglobin 25.3 pg (27.0-33.0); Monocytes Absolute Auto 0.7 X10*3/uL (0.1-1.2); Monocytes Percent Auto 6.5 % (2-11); Neutrophils Absolute Auto 5.7 x10*3/uL (2.0-8.3); Neutrophils Percent Auto 52.7 % (45-73); Platelet Count 424 X10*3/uL (160-400); Red Blood Count 4.39 X10*6/uL (4.20-5.50); Red Cell Distribution Width 18.2 % (11.0-16.0); White Blood Count 10.9 X10*3/uL (4.8-10.8)
[2024-09-27 11:10] LABS: Estimated Average Glucose 180 mg/dL; Hemoglobin A1C 180.5905 umol/L; Hemoglobin A1c % 7.9 % (<6.0); Total Hemoglobin (HGBA1C) 2865.4879 umol/L
[2024-09-27 11:27] LABS: Rheumatoid Factor < 13.0 IU/mL (<15.0)
[2024-09-27 11:28] LABS: Glucose Fasting 167 mg/dL (60-99); Iron 66 mcg/dL (30-160); Percent Iron Saturation 19 % (15-50); Total Iron Binding Capacity 348 mcg/dL (228-428); Unsaturated Iron Binding 282 ug/dL
[2024-09-27 11:39] LABS: Erythrocyte Sedimentation Rate 46 MM/HR (0-20)
== END 2024-09-27 09:02 | disposition home or self-care (01) ==
LOC: HO.10HDL 09:01
PROVIDERS: Visit Provider Family Medicine
DX: D50.9 Iron deficiency anemia, unspecified (principal); E11.9 Type 2 diabetes mellitus without complications; M19.90 Unspecified osteoarthritis, unspecified site
CPT/HCPCS: 36415; 82947; 83036; 83540; 85025; 85652; 86140; 86431

== ENCOUNTER 2025-03-17 07:43 | Outpatient (REF) | payer MEDICARE, SELFPAY ==
[2025-03-17 11:28] LABS: MANUAL DIFF FLAG NO
[2025-03-17 12:03] LABS: Basophils Absolute Auto 0.1 X10*3/uL (0.0-0.2); Basophils Percent Auto 0.8 % (0-2); Eosinophils Absolute Auto 0.3 X10*3/uL (0.0-0.4); Eosinophils Percent Auto 2.7 % (0-4); Hematocrit 36.8 % (37.0-47.0); Hemoglobin 11.7 g/dl (12.0-16.0); Imm Gran Abs Auto 0.03 X10*3/uL (0.00-0.03); Imm Gran Pct Auto 0.3 % (0.0-0.4); Lymphocytes Absolute Auto 4.4 X10*3/uL (1.2-4.9); Lymphocytes Percent Auto 43.7 % (20-40); Mean Corpuscular HGB Conc 31.8 g/dl (31.0-35.0); Mean Corpuscular Hemoglobin 27.9 pg (27.0-33.0); Mean Corpuscular Volume 87.8 fL (80.0-98.0); Mean Platelet Volume 10.2 fL (9.4-12.3); Monocytes Absolute Auto 0.7 X10*3/uL (0.1-1.2); Monocytes Percent Auto 7.1 % (2-11); NRBC Pct Auto 0.2 /100WBC (0.0-0.2); Neutrophils Absolute Auto 4.6 x10*3/uL (2.0-8.3); Neutrophils Percent Auto 45.4 % (45-73); Platelet Count 352 X10*3/uL (160-400); Red Blood Count 4.19 X10*6/uL (4.20-5.50); Red Cell Distribution Width 14.7 % (11.0-16.0); White Blood Count 10.1 X10*3/uL (4.8-10.8)
[2025-03-17 12:09] LABS: Alanine Aminotransferase 13 U/L (0-31); Anion Gap 16 (12-20); Aspartate Amino Transferase 31 U/L (5-31); Blood Urea Nitrogen 22 mg/dL (9-16); Carbon Dioxide 31 mmol/L (22-29); Chloride 101 mmol/L (96-108); Cholesterol 176 mg/dL (<200); Estimated Glomerular Filt Rate 46; Glucose Fasting 152 mg/dL (60-99); HDL Cholesterol 47 mg/dL (>40); Iron 72 mcg/dL (30-160); LDL Cholesterol Calculated 91 mg/dL (<100); Percent Iron Saturation 21 % (15-50); Potassium 3.8 mmol/L (3.3-5.1); Sodium 144 mmol/L (135-145); Total Iron Binding Capacity 337 mcg/dL (228-428); Triglycerides 194 mg/dL (<150); Unsaturated Iron Binding 265 ug/dL
[2025-03-17 12:11] LABS: Estimated Average Glucose 177 mg/dL; Hemoglobin A1c % 7.8 % (<6.0)
[2025-03-17 12:18] LABS: Creatinine Urine 117.96 mg/dL; Microalbum/Creatinine Ratio Ur 9.3 ug/mg cr (<30)
== END 2025-03-17 07:44 | disposition home or self-care (01) ==
LOC: HO.10HDL 07:43
PROVIDERS: Visit Provider Family Medicine
DX: D50.9 Iron deficiency anemia, unspecified (principal); E11.9 Type 2 diabetes mellitus without complications; I10 Essential (primary) hypertension; E78.00 Pure hypercholesterolemia, unspecified; Z79.899 Other long term (current) drug therapy
CPT/HCPCS: 36415; 80051; 80061; 82043; 82550; 82565; 82570; 82947; 83036; 83540; 84450; 84460; 84520; 85025

== ENCOUNTER 2025-09-26 09:04 | Outpatient (AMB) | payer MEDICARE, SELFPAY ==
--- NOTE | 2025-09-26 09:09 | MHC.PC.OV ---
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: No Accompanied by: Daughter Allergies latex (LATEX) Allergy (Severe, Verified 09/26/25 09:10) SEVERE LOCAL REACTION; OOZING Medication List - Last Reconciled 09/26/25 by BIJAL Harris atorvastatin 10 mg PO BEDTIME flaxseed oil 1,000 mg PO DAILY lancets (FreeStyle Lancets) Check fasting glucose daily lisinopril-hydrochlorothiazide 20-25 mg 1 tab PO DAILY metformin 500 mg PO DAILY metoprolol succinate ER 100 mg PO QAM multivitamin with iron 1 tab PO DAILY Tobacco use date assessed: 06/13/25 Dental Screening Dental Screen Date: 06/13/25 HPI HPI Comments History of Present Illness Details 84 year old female with DM, HTN, HLD and chronic anemia here for follow up. Here today with her daughter, Crystal. She is on Metformin daily for DM. She needs refill of Lancets. She has not been able to check her sugar in the past few months. She is on Lisnopril/HCTZ and Metoprolol. Her BP today was 136/78. She is on Atorvastatin for cholesterol. She also takes Flaxseed. She had labs in March that showed stable anemia, a glucose of 152 and A1C 0f 7.8%. She has been having pain in her shoulders at night for several months. She states when she wakes in the am she has stiffness. She is also noticing pain in both knees in the past few weeks. Crystal, Daughter. Type 2 diabetes- on metformin daily. Last A1c, 7.6%. Compliant with diabetic diet. Eye exams utd HTN- on metorpolol, lisinopril- hctz 20-25mg. Uncontrolled at 162/68 Anemia- asking to dc multivitamin with iron. causing diarrhea and abd pain Concerns: Lesion- appears like actinic keratosis ROS: none EXAM: Constitutional - Awake and Alert, No apparent distress Eyes - PERRL Cardiovascular - S1S2, RRR, No edema Respiratory - Normal lung expansion, Normal respiratory effort, No respiratory distress, CTA bilaterally Extremities - no calf tenderness bilaterally, no swelling Skin - Warm/Dry Neurological - Alert & oriented x3 Psychological - Appropriate affect [facility] Medical History (Updated 09/26/25 @ 09:42 by BIJAL Harris) CKD stage 3 due to type 2 diabetes mellitus Anemia of chronic disease Bilateral shoulder pain High cholesterol Diabetes HTN (hypertension) Family History (Updated 06/13/25 @ 09:43 by Jailene Graham MA) Mother No problems noted. Father No problems noted. Social History Housing: House Alcohol intake: never Patient Tobacco Use Status: Never used Tobacco e-Cigarette/Vaping Use: Never Used service: No Current occupational status: unemployed Cognitive needs: No Hearing needs: Yes (left hearing aid) Vision needs: Yes (rx glasses) Questionnaire Thrive Questionnaire Date Thrive assessed: 06/13/25 JOSE-7 AMB Questionnaire JOSE-7 Date JOSE - 7 assessed: 06/13/25 Source: Developed by Drs. Lorenzo Dash, Shadia Montemayor, Emmanuel Gardiner and colleagues, with an educational shani from [employer]. Physical exam (Primary Care) Vital Signs: Last Vital Signs Temp 97.5 F 09/26/25 09:16 Pulse 85 09/26/25 09:16 BP 162/68 H 09/26/25 09:44 Pulse Ox 96 09/26/25 09:16 Oxygen Delivery Method Room Air 09/26/25 09:16 BMI result Body Mass Index 23.1 Tobacco/Smoking Status: Tobacco use Status Tobacco use date assessed 06/13/25 09/26/25 09:12 Patient Tobacco Use Status Never used Tobacco 09/26/25 09:12 e-Cigarette/Vaping Use Never Used 09/26/25 09:12 Thrive Assessment: Date of Thrive Assessment Date Thrive assessed 06/13/25 09/26/25 09:12 Coding Level of Care Code Est Pt Level 4 (54529) Add On Problem Visit Only Diagnoses Type 2 diabetes mellitus without complication, without long-term current use of insulin E11.9 Diabetes mellitus type: type 2 Diabetes mellitus 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 insulin use: without custodial use Diabetes mellitus complication status: without complication Primary hypertension I10 Hypertension type: primary hypertension High cholesterol E78.00 Bilateral knee pain M25.561; M25.562 Assessment & Plan Assessment & Plan (1) Diabetes: Code(s): E11.9 - Type 2 diabetes mellitus without complications Category: Medical Qualifiers: Diabetes mellitus type: type 2 Diabetes mellitus custodial insulin use: without 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 use Diabetes mellitus complication status: without complication Qualified Code(s): E11.9 - Type 2 diabetes mellitus without complications Plan: Will refill Lancets. Patient to continue on Metformin Reasonably controlled for age. Diabetic diet. Continue eye exams (2) Hypertension: Code(s): I10 - Essential (primary) hypertension Category: Medical Qualifiers: Hypertension type: primary hypertension Qualified Code(s): I10 - Essential (primary) hypertension Plan: Controlled on Lisinopril/HCTZ and Metoprolol. Add amlodipine 5mg daily as uncontrolled (3) High cholesterol: Code(s): E78.00 - Pure hypercholesterolemia, unspecified Category: Medical Plan: Patient would like to continue Atorvastatin. (4) Bilateral knee pain: Code(s): M25.561 - Pain in right knee; M25.562 - Pain in left knee Plan: Discussed xrays. Patient declines at this time. Will try Diclofenac gel. Patient to follow up as needed if symptoms persist or worsen. Plan Follow up in 3 months. Labs today Referred to derm to eval actinic keratosis Orders: Orders Liver Panel 09/26/25 D63.8 - Anemia in other chronic diseases classified elsewhere, E11.22 - Type 2 diabetes mellitus with diabetic chronic kidney disease, E11.9 - Type 2 diabetes mellitus without complications, E78.00 - Pure hypercholesterolemia, unspecified, I10 - Essential (primary) hypertension, N18.30 - Chronic kidney disease, stage 3 unspecified Vitamin D 25-OH Total 09/26/25 D63.8 - Anemia in other chronic diseases classified elsewhere, E11.22 - Type 2 diabetes mellitus with diabetic chronic kidney disease, E11.9 - Type 2 diabetes mellitus without complications, E78.00 - Pure hypercholesterolemia, unspecified, I10 - Essential (primary) hypertension, N18.30 - Chronic kidney disease, stage 3 unspecified Basic Metabolic Panel 09/26/25 D63.8 - Anemia in other chronic diseases classified elsewhere, E11.22 - Type 2 diabetes mellitus with diabetic chronic kidney disease, E11.9 - Type 2 diabetes mellitus without complications, E78.00 - Pure hypercholesterolemia, unspecified, I10 - Essential (primary) hypertension, N18.30 - Chronic kidney disease, stage 3 unspecified Complete Blood Count Auto Diff 09/26/25 D63.8 - Anemia in other chronic diseases classified elsewhere, E11.22 - Type 2 diabetes mellitus with diabetic chronic kidney disease, E11.9 - Type 2 diabetes mellitus without complications, E78.00 - Pure hypercholesterolemia, unspecified, I10 - Essential (primary) hypertension, N18.30 - Chronic kidney disease, stage 3 unspecified Hemoglobin A1c 09/26/25 D63.8 - Anemia in other chronic diseases classified elsewhere, E11.22 - Type 2 diabetes mellitus with diabetic chronic kidney disease, E11.9 - Type 2 diabetes mellitus without complications, E78.00 - Pure hypercholesterolemia, unspecified, I10 - Essential (primary) hypertension, N18.30 - Chronic kidney disease, stage 3 unspecified Referrals Dermatology Referral L57.0 - Actinic keratosis Medications: New amlodipine 5 mg PO DAILY 90 tabs 1RF Refilled lancets (FreeStyle Lancets) Check fasting glucose daily 100 ea 1RF Discontinued multivitamin with iron with food Discontinued Reason: Doctor's Order 1 tab PO DAILY 90 tabs 3RF
[2025-09-26 09:16] VITALS: BP 154/68; PULSE 85; TEMP 36.4; O2SAT 96; BMI 23.1
[2025-09-26 09:44] VITALS: BP 162/68
== END 2025-09-26 09:56 | disposition home or self-care (01) ==
LOC: HO.HMCHD 09:05
PROVIDERS: PCP Physician Assistant; Visit Provider Physician Assistant
DX: E11.9 Type 2 diabetes mellitus without complications (principal); I10 Essential (primary) hypertension; E78.00 Pure hypercholesterolemia, unspecified; M25.561 Pain in right knee; M25.562 Pain in left knee

== ENCOUNTER 2025-09-26 09:04 | Outpatient (REF) | payer MEDICARE, SELFPAY ==
[2025-09-26 13:53] LABS: MANUAL DIFF FLAG NO
[2025-09-26 14:32] LABS: Hematocrit 36.7 % (37.0-47.0); Hemoglobin 11.9 g/dl (12.0-16.0); Imm Gran Abs Auto 0.03 X10*3/uL (0.00-0.03); Imm Gran Pct Auto 0.3 % (0.0-0.4); Lymphocytes Absolute Auto 2.8 X10*3/uL (1.2-4.9); Mean Corpuscular HGB Conc 32.4 g/dl (31.0-35.0); Mean Corpuscular Hemoglobin 27.9 pg (27.0-33.0); Mean Corpuscular Volume 86.2 fL (80.0-98.0); NRBC Abs Auto 0.000 X10*3/uL (0.0-0.012); NRBC Pct Auto 0.0 /100WBC (0.0-0.2); Platelet Count 345 X10*3/uL (160-400); Red Blood Count 4.26 X10*6/uL (4.20-5.50); White Blood Count 9.7 X10*3/uL (4.8-10.8)
[2025-09-26 14:49] LABS: Alanine Aminotransferase 19 U/L (0-31); Albumin Level 4.6 g/dL (3.5-5.0); Alkaline Phosphatase 62 U/L (39-117); Anion Gap 13 (12-20); Aspartate Amino Transferase 28 U/L (5-31); Blood Urea Nitrogen 24 mg/dL (9-16); Calcium 9.4 mg/dL (8.4-10.2); Carbon Dioxide 33 mmol/L (22-29); Chloride 97 mmol/L (96-108); Estimated Glomerular Filt Rate 45; Potassium 3.9 mmol/L (3.3-5.1); Sodium 139 mmol/L (135-145); Total Protein 7.5 g/dL (6.5-8.0)
== END 2025-09-26 09:05 | disposition home or self-care (01) ==
LOC: HO.10HDL 09:04
PROVIDERS: PCP Physician Assistant; Visit Provider Physician Assistant
DX: E11.22 Type 2 diabetes mellitus with diabetic chronic kidney disease (principal); I12.9 Hypertensive chronic kidney disease with stage 1 through stage 4 chronic kidney disease, or unspecified chronic kidney disease; N18.30 Chronic kidney disease, stage 3 unspecified; D63.8 Anemia in other chronic diseases classified elsewhere; E78.00 Pure hypercholesterolemia, unspecified; M25.561 Pain in right knee; M25.562 Pain in left knee
CPT/HCPCS: 36415; 80048; 80076; 82306; 83036; 85025; 99212